=== PATIENT | female | born 1990 | race Two or more races ===

== ENCOUNTER 2017-11-11 11:11 | Day surgery (SDC) | payer BC ==
[~2017-11-11] VITALS: Ht 162.6 cm; Wt 74.6 kg
[2017-11-11] MEDS ORDERED: LACTATED RINGERS 1,000 ML IV SCH (11:39)
[2017-11-11] MEDS ORDERED: LIDOCAINE-MPF 1%, 2ML ONE (11:55)
[2017-11-11 11:57] VITALS: BP 118/81
[2017-11-11] MEDS ORDERED: NORG1TAB26 PO (12:03)
[2017-11-11] MEDS ORDERED: MIDAZOLAM 1 MG/ML, 2ML ONE (12:09)
[2017-11-11] MEDS ORDERED: FENTANYL PF 250 MCG/5ML ONE (12:09)
[2017-11-11] MEDS ORDERED: PROPOFOL 10 MG/ML, 20ML ONE (12:10)
[2017-11-11] MEDS ORDERED: CEFAZOLIN 1,000 MG ONE ×2 (12:11)
[2017-11-11] MEDS ORDERED: WATER-INJECTION,STERILE 10 ML IV ONE (12:11)
[2017-11-11] MEDS ORDERED: LIDOCAINE-MPF 1%, 2ML INFIL ONE (12:30)
[2017-11-11 12:31] LABS: BASOPHILS # (AUTO) 0.07 x10^3/uL (0-0.1); BASOPHILS % (AUTO) 1 % (0-1); EOSINOPHILS # (AUTO) 0.06 x10^3/uL (0-0.4); EOSINOPHILS % (AUTO) 1 % (1-7); LYMPHOCYTES # (AUTO) 2.38 x10^3/uL (1-3.4); LYMPHOCYTES % (AUTO) 31 % (22-44); MD NO; MEAN CORPUSCULAR HEMOGLOBIN 30.4 pg (27.0-34.8); MEAN CORPUSCULAR HGB CONC 33.4 g/dL (32.4-35.8); MEAN CORPUSCULAR VOLUME 91.2 fL (80-100); MEAN PLATELET VOLUME 8.9 fL (7.4-10.4); MONOCYTES # (AUTO) 0.33 x10^3/uL (0.2-0.8); MONOCYTES % (AUTO) 4 % (2-9); NEUTROPHILS % (AUTO) 63 % (42-75); PLATELET COUNT 253 x10^3/uL (130-400); RED BLOOD COUNT 4.37 x10^6/uL (3.82-5.3); RED CELL DISTRIBUTION WIDTH 12.7 % (9.6-15.2)
[2017-11-11] MEDS ORDERED: DEXAMETHASONE 4 MG/ML, 1ML ONE ×2 (12:46)
[2017-11-11] MEDS ORDERED: ONDANSETRON 2MG/ML, 2ML ONE (12:46)
[2017-11-11] MEDS ORDERED: SILVER NITRATE STICK TP ONE (12:50)
[2017-11-11] MEDS ORDERED: SCOPOLAMINE PATCH, 1.5MG PATCH.TD72 TD ONE ×2 (12:50)
[2017-11-11] MEDS ORDERED: METHYLERGONOVINE 0.2 MG/ML IM ONE (12:50)
[2017-11-11] MEDS ORDERED: OXYTOCIN 10 UNITS/ML, 1ML ONE (12:50)
[2017-11-11] MEDS ORDERED: MISOPROSTOL 200 MCG TABLET ONE (12:50)
[2017-11-11] MEDS ORDERED: PROMETHAZINE 12.5 MG SUPP PR PRN (13:00)
[2017-11-11] MEDS ORDERED: PROMETHAZINE 25 MG/ML, 1ML IV PRN (13:00)
[2017-11-11] MEDS ORDERED: ACETAMINOPHEN 325 MG TABLET PO PRN (13:00)
[2017-11-11] MEDS ORDERED: MEPERIDINE/PF 25MG/0.5ML IVPush PRN (13:00)
[2017-11-11] MEDS ORDERED: morphine SULFATE 10 MG/ML, 1ML IV PRN (13:00)
[2017-11-11] MEDS ORDERED: ONDANSETRON 2MG/ML, 2ML IVPush PRN (13:00)
[2017-11-11] MEDS ORDERED: OXYcodone 5 MG/5 ML ORAL.SOL UDC PO PRN (13:00)
[2017-11-11] MEDS ORDERED: HYDROmorphone 1 MG/ML, 1ML IV PRN (13:00)
[2017-11-11 13:05] LABS: MICROSCOPIC INDICATED
[2017-11-11 13:44] LABS: CULTURE INDICATED? NO
[2017-11-11] MEDS ORDERED: FENTANYL PF 100 MCG/2ML ONE (13:50)
[2017-11-11] MEDS ORDERED: ACETAMINOPHEN 650 MG/20.3 ML UDC ONE (13:50)
[2017-11-11] MEDS: FENTANYL PF 100 MCG/2ML IV PRN ×2 (13:55→14:15)
[2017-11-11] MEDS ORDERED: PROMETHAZINE 25 MG/ML, 1ML ONE (14:17)
[2017-11-11] MEDS ORDERED: KETOROLAC 30 MG/1 ML ONE (15:12)
[2017-11-11] MEDS ORDERED: KETOROLAC 30 MG/1 ML IVPush ONE (15:30)
== END 2017-11-11 16:40 ==
LOC: OUT 11:11
PROVIDERS: ATTEND Obstetrics & Gynecology
DX: N92.1 Excessive and frequent menstruation with irregular cycle (principal); Z88.1 Allergy status to other antibiotic agents; Z90.49 Acquired absence of other specified parts of digestive tract
CPT/HCPCS: 36415; 58120; 81001; 81025; 85025; 88305; J0690; J1100; J1885; J2250; J2405; J2550; J2704; J3010; J3490; J7120; J2210; J2590

== ENCOUNTER 2019-05-14 11:24 | Outpatient (CLI) | payer BC ==
[~2019-05-14 11:24] MED LIST: NORG1TAB77 PO
[2019-05-14] MEDS ORDERED: AZIT500T2 PO (11:52)
[2019-05-14] MEDS ORDERED: PRED5TAB PO (11:53)
== END 2019-05-14 23:59 | disposition home or self-care (01) ==
LOC: STAR 11:24
PROVIDERS: ATTEND Orthopaedic Surgery Foot and Ankle Surgery
DX: Z02.9 Encounter for administrative examinations, unspecified (principal)

== ENCOUNTER 2019-05-20 05:15 | Day surgery (SDC) | payer BC ==
[~2019-05-20] VITALS: Ht 163.8 cm; Wt 79.7 kg
[~2019-05-20 05:15] MED LIST changes: +AZIT500T2 PO; +PRED5TAB PO
[2019-05-20] MEDS ORDERED: NO MEDS PER PT (06:10)
[2019-05-20] MEDS ORDERED: LIDOCAINE 1%, 20ML ONE (06:10)
[2019-05-20] MEDS ORDERED: BUPIVACAINE/PF 0.5% ONE ×2 (06:10→08:14)
[2019-05-20 06:11] VITALS: BP 114/83
[2019-05-20] MEDS ORDERED: LACTATED RINGERS 1,000 ML IV SCH (06:11)
[2019-05-20] MEDS ORDERED: LIDOCAINE GEL 2%, 5ML ONE (06:28)
[2019-05-20] MEDS ORDERED: MIDAZOLAM 1 MG/ML, 2ML ONE (06:28)
[2019-05-20] MEDS ORDERED: FENTANYL PF 100 MCG/2ML ONE ×3 (06:28→10:00)
[2019-05-20] MEDS ORDERED: GABAPENTIN 300 MG CAPSULE PO ONE (06:30)
[2019-05-20] MEDS ORDERED: SCOPOLAMINE PATCH, 1.5MG PATCH.TD72 TD ONE (06:30)
[2019-05-20] MEDS ORDERED: ACETAMINOPHEN 500 MG TABLET PO ONE (06:30)
[2019-05-20] MEDS ORDERED: PROPOFOL 50 ML ONE ×3 (07:16→08:43)
[2019-05-20] MEDS ORDERED: HYDROmorphone 2 MG/ML, 1ML IVPush PRN (08:00)
[2019-05-20] MEDS ORDERED: MIDAZOLAM 1 MG/ML, 2ML IV PRN (08:00)
[2019-05-20] MEDS ORDERED: PROMETHAZINE 25 MG/ML, 1ML IV PRN (08:00)
[2019-05-20] MEDS ORDERED: hydrALAzine 20 MG/ML, 1ML IV PRN (08:00)
[2019-05-20] MEDS ORDERED: ALBUTEROL/IPRATROPIUM 2.5MG/0.5MG, 3 ML NPPB PRN (08:00)
[2019-05-20] MEDS ORDERED: PROPOFOL 10 MG/ML, 20ML ONE (08:55)
[2019-05-20] MEDS ORDERED: CEFAZOLIN 1,000 MG ONE (08:55)
[2019-05-20] MEDS ORDERED: DEXAMETHASONE 4 MG/ML, 1ML ONE (08:55)
[2019-05-20] MEDS ORDERED: ONDANSETRON 2MG/ML, 2ML ONE (08:55)
[2019-05-20] MEDS ORDERED: ROPIvacaine/PF 0.2%, 100ML 550 ML (check volume) INJ ONE (09:00)
[2019-05-20] MEDS: MEPERIDINE/PF 25MG/ML,1ML IVPush PRN ×2 (09:45→10:00)
[2019-05-20] MEDS ORDERED: OXYcodone 5 MG/5 ML ORAL.SOL UDC ONE (09:45)
[2019-05-20] MEDS ORDERED: MEPERIDINE/PF 25MG/ML,1ML ONE (09:45)
[2019-05-20] MEDS: OXYcodone 5 MG/5 ML ORAL.SOL UDC PO PRN ×2 (09:45→10:00)
[2019-05-20] MEDS: FENTANYL PF 100 MCG/2ML IV PRN ×3 (10:00→10:35)
== END 2019-05-20 12:20 | disposition home or self-care (01) ==
LOC: OUT 05:15
PROVIDERS: ATTEND Orthopaedic Surgery Foot and Ankle Surgery
DX: M21.42 Flat foot [pes planus] (acquired), left foot (principal); M19.072 Primary osteoarthritis, left ankle and foot; G57.52 Tarsal tunnel syndrome, left lower limb; G57.32 Lesion of lateral popliteal nerve, left lower limb; M76.822 Posterior tibial tendinitis, left leg; Z72.89 Other problems related to lifestyle; Z79.899 Other long term (current) drug therapy; Z88.1 Allergy status to other antibiotic agents; Z90.710 Acquired absence of both cervix and uterus; Z98.890 Other specified postprocedural states
CPT/HCPCS: 27600; 27691; 28035; 28200; 28725; 64445; 64447; 73620; C1713; C1769; J0690; J1100; J2175; J2250; J2405; J2704; J2795; J3010; J7120; 76000